=== PATIENT | female | born 1965 | race African-American/Black ===

== ENCOUNTER 2022-01-18 16:15 | Inpatient (IN) | payer MEDICAID ==
[~2022-01-18] VITALS: Ht 162.6 cm; Wt 93.9 kg
--- NOTE | 2022-01-18 16:48 | NUR ---
PT AMBULATED TO ROOM.
--- NOTE | 2022-01-18 17:02 | NUR ---
C/O ABD PAIN, N/V X 3 DAYS. PT STATES THE PAIN IS 10/10 IN THE ABDOMINAL REGION. SHE SAYS SHE HAS HAD DISCOMFORT FOR ABOUT A YEAR NOW BUT A FEW DAYS AGO THE PAIN INCREASED AND SHE DEVELOPED NAUSEA AND VOMITING. PT STATES SHE HAS NOT BEEN ABLE TO KEEP FOOD OR WATER DOWN. NO DYSURIA. BLANKET PROVIDED.PT RESTING IN BED. PMH: DENIES NKA
[2022-01-18] MEDS ORDERED: NACL 0.9% 1,000 ML IV ONE ×2 (17:20→18:45)
[2022-01-18] MEDS ORDERED: ONDANSETRON 4 MG/2 ML VIAL IVP ONE (17:20)
[2022-01-18] MEDS ORDERED: KETOROLAC 15 MG/ML VIAL IVP ONE (17:20)
--- NOTE | 2022-01-18 17:36 | NUR ---
PT TAKEN TO CT VIA URI
[2022-01-18 17:41] LABS: BASOPHILS % (AUTO) 0.4 % (0.0-2.0); EOSINOPHILS # (AUTO) 0.1 K/uL (0-0.4); EOSINOPHILS % (AUTO) 1.6 % (0.0-4.0); HEMATOCRIT 36.4 % (36-48); HEMOGLOBIN 12.3 g/dL (12.0-16.0); LYMPHOCYTES # (AUTO) 1.2 K/uL (2.5-16.5); LYMPHOCYTES % (AUTO) 15.8 % (20.5-51.1); MEAN CORPUSCULAR HEMOGLOBIN 33 pg (27-31); MEAN CORPUSCULAR HGB CONC 34 g/dL (33-37); MEAN CORPUSCULAR VOLUME 97.6 fL (80-94); MONOCYTES # (AUTO) 0.4 K/uL (0.8-1.0); MONOCYTES % (AUTO) 4.9 % (1.7-9.3); NEUTROPHILS # (AUTO) 5.9 K/uL (1.8-7.7); NEUTROPHILS % (AUTO) 77.3 % (42.2-75.2); PLATELET COUNT (AUTO) 252 K/uL (140-450); RED BLOOD CELL COUNT(AUTO) 3.73 MIL/uL (4.20-5.40); RED CELL DISTRIBUTION WIDTH 12.7 % (11.6-13.7); WHITE BLOOD COUNT (AUTO) 7.6 K/uL (4.8-10.8)
[2022-01-18 18:06] LABS: ALBUMIN 3.2 g/dL (3.4-5.0); ANION GAP 10.6 (8-16); CARBON DIOXIDE 29.4 mmol/L (21-32); CREATININE 0.9 mg/dL (0.6-1.3); TOTAL BILIRUBIN 0.4 mg/dL (0.0-1.0)
--- NOTE | 2022-01-18 18:14 | NUR ---
PT PROVIDED WITH PILLOW AND BLANKET BEDSIDE
--- NOTE | 2022-01-18 18:34 | NUR ---
Patient appears to be resting comfortably in bed. Vital Signs within normal limits. Respirations even and unlabored.
--- NOTE | 2022-01-18 18:51 | NUR ---
ALBINO COLLECTED AND HANDED TO EXPLOSIVE ORDNANCE TECHNICIAN BEDSIDE
[2022-01-18] MEDS ORDERED: diphenhydrAMINE 50 MG/ML VIAL IVP ONE (19:00)
--- NOTE | 2022-01-18 19:19 | NUR ---
REPOST GIVEN TO LOGAN
--- NOTE | 2022-01-18 19:24 | NUR ---
ULTRASOUND AT BEDSIDE
--- NOTE | 2022-01-18 20:20 | NUR ---
Admitted from ER TO [facility] , with chief complaint of ABDOMINAL PAIN SINCE 01/16/22, DESCRIBED 10/10 BUT COMES AND GOES, NON-RADIATING. ALSO ONE DAY VOMITING. 56 y/o ,Female, Cooperative, A/A/OX4. RESPIRATION EVEN AND [id number]. IV SALINE LOCK AT THE LEFT AG G18, PATENT AND INTACT. HEAD TO TOE ASSESSMENT WITH CHARGE NURSE PATRICK, SKIN IS INTACT. WAS MEDICATED IN ER WITH MORPHINE FOR PAIN. DENIES PAIN, 0/10 AT THIS TIME. [id number] AT THE BEDSIDE. NPO EXCEPT MEDICATIONS. oriented to call light, bed, phone,television, bathroom, smoking policy, visiting hours, procedures, ID bracelet on. Belongings list checked.
[2022-01-18] MEDS ORDERED: DEXT 5% / NACL 0.9% 500 ML IV SCH (20:55)
[2022-01-18] MEDS: DEXT 5% /NACL 0.9% 1,000 ML IV SCH ×2 (21:10→23:13)
[2022-01-18] MEDS: MORPHINE SULFATE 4 MG/ML SYR IVP PRN (21:24)
--- NOTE | 2022-01-18 21:59 | NUR ---
Patient will be admitted to care of DR. HODGES. Admited to MED SURG. Will go to room 119A. Belongings list completed. Report to CARMELO.
--- NOTE | 2022-01-18 22:10 | NUR ---
PATIENT PLAN OF CARE DISCUSSED AND REVIEWED WITH CINTIA RILEY.
[2022-01-18 22:20] VITALS: BP 148/84
[2022-01-18] MEDS ORDERED: POTASSIUM CHLORIDE 40 MEQ, LIDOCAINE MPF 1% 25 MG in NACL 0.9% 250 ML IV SCH (23:00)
[2022-01-18] MEDS ORDERED: DOCUSATE SODIUM 100 MG GELCAP PO PRN (23:00)
[2022-01-18] MEDS ORDERED: ACETAMINOPHEN 325 MG TAB PO PRN (23:00)
[2022-01-18] MEDS ORDERED: ZOLPIDEM 5 MG TAB PO PRN (23:00)
[2022-01-18] MEDS ORDERED: guaiFENesin DM 200/20 MG-10 ML 10 ML UDC PO PRN (23:00)
[2022-01-18] MEDS ORDERED: HYDROcodone/APAP 7.5/325 MG 1 TAB PO PRN (23:00)
[2022-01-18 23:31] LABS: PROTHROMBIN TIME 10.6 secs (10.8-13.4)
[2022-01-18 23:42] LABS: AMYLASE 183 U/L (25-115); CHOL/HDL RATIO 6.5 (1-4.5); FREE T4 (FREE THYROXINE) 1.01 ng/dL (0.76-1.46); HDL CHOLESTEROL 39 mg/dL (40-60); LDL (CALC) 177 mg/dL (60-100); MAGNESIUM 2.4 mg/dL (1.8-2.4); PHOSPHORUS 3.8 mg/dL (2.5-4.9); TRIGLYCERIDES 181 mg/dL (30-150)
--- NOTE | 2022-01-19 | NUR ---
SLEEPING COMFORTABLY IN BED, RESPIRATION EVEN AND UNLABORED. CALL LIGHT IN REACH.
--- NOTE | 2022-01-19 00:30 | NUR ---
PATIENT IS LYING OB BED, PATIENT VITAL SIGN IS WITHIN THE NORMAL RANGE, ALL SCHEDULE MEDS ARE GIVEN PER DOCTOR ORDER,CALL LIGHT IS WITHIN THE REACH ,WILL CONTINUE TO MONITOR PATIENT. Addendum: 01/19/22 at 2203 by Deann Corona RN ACCIDENTLY PUT WRONG TIME.
--- NOTE | 2022-01-19 00:30 | NUR ---
PATIENT IS LYING OB BED, PATIENT VITAL SIGN IS WITHIN THE NORMAL RANGE, ALL SCHEDULE MEDS ARE GIVEN PER DOCTOR ORDER,CALL LIGHT IS WITHIN THE REACH ,WILL CONTINUE TO MONITOR PATIENT. Addendum: 01/19/22 at 2202 by Deann Corona RN ACCIDENTLY PUT WRONG TIME.
--- NOTE | 2022-01-19 02:00 | NUR ---
ASSISTED OUT OF BED TO GO TO THE BR. BACK TO BED AFTER VOIDING. UA SPECIMEN SENT OT LAB FOR UA AND UDS.
[2022-01-19 02:45] LABS: APPEARANCE,URINE CLEAR (CLEAR); BILIRUBIN,URINE 1+ (NEGATIVE); BLOOD, URINE NEGATIVE (NEGATIVE); COLOR,URINE YELLOW (YELLOW); LEUKOCYTE ESTERASE ,URINE 1+ (NEGATIVE); NITRITE, URINE NEGATIVE (NEGATIVE); UGLUCOSE NEGATIVE (NEGATIVE)
[2022-01-19 02:56] LABS: RBC,URINE 0-5 /HPF (0-5)
[2022-01-19 02:58] LABS: BARBITURATE, URINE NEGATIVE ng/ml (NEG <=200); BENZODIAZEPINE, URINE NEGATIVE ng/mL (NEG <=200); CANNABINOID, URINE POSITIVE ng/mL (NEG <=50); COCAINE, URINE NEGATIVE ng/mL (NEG <=300); OPIATE, URINE POSITIVE ng/mL (NEG <=2000); PHENCYCLIDINE SCREEN,URINE NEGATIVE ng/mL (NEG <=25)
[2022-01-19] MEDS: DEXT 5% /NACL 0.9% 1,000 ML IV SCH (03:40)
[2022-01-19 04:40] VITALS: BP 132/76
[2022-01-19] MEDS: ONDANSETRON 4 MG/2 ML VIAL IM/IVP PRN ×2 (04:41→20:05)
[2022-01-19] MEDS: MORPHINE SULFATE 4 MG/ML SYR IVP PRN (04:41)
[2022-01-19] MEDS: KETOROLAC 15 MG/ML VIAL IM SCH ×3 (05:00→20:06)
--- NOTE | 2022-01-19 05:00 | NUR ---
TORADOL NO ADMINISTERED, PATIENT HAD MORPHINE 2 MG AT 0441.
[2022-01-19 05:13] LABS: BASOPHILS % (AUTO) 0.6 % (0.0-2.0); EOSINOPHILS # (AUTO) 0.3 K/uL (0-0.4); EOSINOPHILS % (AUTO) 4.6 % (0.0-4.0); HEMATOCRIT 32.8 % (36-48); HEMOGLOBIN 11.2 g/dL (12.0-16.0); LYMPHOCYTES # (AUTO) 1.3 K/uL (2.5-16.5); LYMPHOCYTES % (AUTO) 19.9 % (20.5-51.1); MEAN CORPUSCULAR HEMOGLOBIN 33 pg (27-31); MEAN CORPUSCULAR HGB CONC 34 g/dL (33-37); MEAN CORPUSCULAR VOLUME 97.3 fL (80-94); MONOCYTES # (AUTO) 0.5 K/uL (0.8-1.0); MONOCYTES % (AUTO) 6.9 % (1.7-9.3); NEUTROPHILS # (AUTO) 4.5 K/uL (1.8-7.7); PLATELET COUNT (AUTO) 232 K/uL (140-450); RED BLOOD CELL COUNT(AUTO) 3.37 MIL/uL (4.20-5.40); RED CELL DISTRIBUTION WIDTH 12.9 % (11.6-13.7); WHITE BLOOD COUNT (AUTO) 6.6 K/uL (4.8-10.8)
[2022-01-19 05:36] LABS: ANION GAP 11.3 (8-16); CARBON DIOXIDE 27.7 mmol/L (21-32); CREATININE 0.7 mg/dL (0.6-1.3)
--- NOTE | 2022-01-19 07:00 | NUR ---
CONDITION REMAIN STABLE. WILL ENDORSE TO AM SHIFT NURSE FOR CONTINUITY OF CARE.
[2022-01-19 08:00] VITALS: BP 136/83
[2022-01-19] MEDS: PANTOPRAZOLE 40 MG TABEC PO SCH (08:56)
[2022-01-19] MEDS ORDERED: MAG SULF 2000 MG/WATER PREMIX 50 ML IV PRN (09:15)
[2022-01-19] MEDS ORDERED: POTASSIUM CHLORIDE 10 MEQ TABER PO PRN (09:15)
[2022-01-19] MEDS: POTASSIUM CHLORIDE 10 MEQ TABER PO PRN (10:24)
[2022-01-19] MEDS: NACL 0.9% 1,000 ML IV SCH ×2 (10:28→22:40)
--- NOTE | 2022-01-19 11:40 | NUR ---
PATIENT HAS BEEN SCREENED AND CATEGORIZED MODERATE NUTRITION RISK. PATIENT WILL BE SEEN WITHIN 3-5 DA[address] OF [address]MISSION. [address]
--- NOTE | 2022-01-19 12:15 | NUR ---
DC PLANNING PATIENT IS A 56 YR OLD FEMALE WHO PRESENTED TO [facility] ON 01/18/22 FOR AN EVALUATION OF DIFFUSE ABDOMINAL PAIN FOR ONE YEAR. SW MET WITH PATIENT AT BEDSIDE FOR THE PURPOSE OF DISCUSSING GATHERING COLLATERAL INFORMATION. PATIENT REPORTED LIVING AT [address] [place] [address] ALONE. PATIENT REPORTS EMERGENCY CONTACT AND MEDICAL DECISION MAKER ERWIN RUST (MOTHER) [phone]. PATIENT DENIED A.D IN PLACE. SW PROVIDED PATIENT WITH INFORMATION ON A.D. PATIENT WAS RECEPTIVE AND ACCEPTED AD PACKET PROVIDED BY [employer]ATHER REPAIRER. PATIENT REPORTS HAVING NEW MEDICAL PLAN AND NOT HAVING MET PCP. SW SPOKE TO PATIENT ABOUT THE IMPORTANCE OF FOLLOW UP CARE ONCE CLEARED FOR DC. PATIENT WAS IN UNDERSTANDING AND REPORTED THAT SHE WOULD FOLLOW UP WITH PCP. PATIENT DENIES BARRIERS IN ACCESSING MEDICATIONS AND RECEIVES MEDICATION FROM [facility] IN [place]. PATIENT REPORTS BEING INDEPENDENT AND DENIES DME. PATIENT REPORTS ADEQUATE FRIEND AND FAMILY SUPPORT AND REPORTS THAT FAMILY MEMBERS WILL BE PICKING HER UP FROM HOSPITAL ONCE CLEARED FOR DC AND WILL AID IN HER CARE, IF NEEDED. PATIENT REPORTS BEING UNEMPLOYED AND IS REQUESTING SSDI RESOURCES. PATIENT REPORTS RECEIVES [email or web address] RENT RELIEF AT THIS TIME TO ASSIST IN HER PAYING RENT. SW INQUIRED ON ADDITIONAL RESOURCES NEEDED, PATIENT DECLINED AT THIS TIME. SW WILL FOLLOW UP WITH PROVIDING SSDI AND EMERGENCY ASSISTANCE RESOURCES FOR PATIENT. Addendum: 01/19/22 at 1412 by Khang Loyola SW ATTEMPTED TO FOLLOW UP WITH PATIENT TO PROVIDE PATIENT WITH REQUESTED RESOURCES. PATIENT WAS SLEEPING HOWEVER, PATIENTS [id number] FRANCES WAS AT BEDSIDE. PATIENTS DAUGHTER IN LAW ACCEPTED SSDI INFORMATION AND EMERGENCY ASSISTANCE RESOURCES. BRENNEN MORALES, REPORTED THAT SHE WOULD PROVIDE PATIENT WITH RESOURCES ONCE SHE AWOKE.
--- NOTE | 2022-01-19 15:18 | NUR ---
DC PLANNING: THE PATIENT ADMITTED FROM HOME WITH C/O ABDOMINAL PAIN WITH VOMITING X 3 DAYS. LIPASE ELEVATED AT 735, K+ 3.0, CT ABDOMEN SHOWS ACUTE PANCREATITIS. GB US SHOWS HEPTAOMEGALY WITH FATTY INFILTRATION OF LIVER. PATIENT MADE NPO AND STARTED ON IVF'S AND PAIN MANAGEMENT. CM SPOKE WITH THE PATIENT AT BEDSIDE, HER CORRECT ADDRESS IS [address] [place] [address] IN [place]. SHE LIVES ALONE AND HAS NO H/O HOME HEALTH OR DME. SHE IS INDEPENDENT IN ALL ACTIVITIES AND IS UNEMPLOYED. SHE RECEIVES FOOD STAMPS AND HAS RENT RELIEF THROUGH A [employer]. 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 SHE HAS BEEN DENIED BY UNEMPLOYMENT, CM ENDORSED THAT THE WILL GIVE HER RESOURCES AND INFORMATION ON APPLYING FOR SSDI. 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 THE PATIENTS DAUGHTER ASSISTS HER NEEDED AND OFTEN DRIVES HER TO APPOINTMENTS AND TO RUN ERRANDS. THE PATIENT HAS A NEW PCP BECAUSE SHE JUST BECAME INSURED AND HAS NOT SEEN THEM YET. THE PATIENT WILL DC HOME WHEN CLINICALLY STABLE, CM WILL FOLLOW.
[2022-01-19 16:00] VITALS: BP 143/90
--- NOTE | 2022-01-19 19:44 | NUR ---
GET THE REPORT FROM MORNING NURSE, PATIENT IS LYING ON BED,PATIENT IS ALERT AND ORIENTEDX4 ,NO ANY COMPLAIN OF SHORTNESS OF BREATH, CALL LIGHT IS WITHIN THE REACH,WILL CONTINUE TO MONITOR PATIENT
[2022-01-19 20:00] VITALS: BP 129/73
--- NOTE | 2022-01-19 20:30 | NUR ---
PATIENT IS LYING OB BED, PATIENT VITAL SIGN IS WITHIN THE NORMAL RANGE, ALL SCHEDULE MEDS ARE GIVEN PER DOCTOR ORDER,CALL LIGHT IS WITHIN THE REACH ,WILL CONTINUE TO MONITOR PATIENT.
--- NOTE | 2022-01-20 00:30 | NUR ---
PATIENT IS LYING ON BED, NO ANY COMPLAIN OF PAIN OR SHORTNESS OF BREATH AT THIS TIME, ALL SCHEDULE MEDS ARE GIVEN PER DOCTOR ORDER,CALL LIGHT IS WITHIN THE REACH,WILL CONTINUE TO MONITOR.
[2022-01-20] MEDS: NACL 0.9% 1,000 ML IV SCH ×4 (00:47→16:03)
[2022-01-20] MEDS: ONDANSETRON 4 MG/2 ML VIAL IM/IVP PRN ×3 (02:48→16:03)
[2022-01-20] MEDS: MORPHINE SULFATE 2 MG/ML SYR IVP PRN ×4 (02:49→23:28)
--- NOTE | 2022-01-20 02:55 | NUR ---
PATIENT IS COMPLAINING OF PAIN AND VOMITING, MEDICATED WITH ZOFRAN AND MORPHINE IV PRN AD PER DOCTOR ORDER, WILL REASSESS PAIN LAVAL,CALL LIGHT IS WITHIN THE REACH,WILL CONTINUE TO MONITOR PATIENT.
[2022-01-20 04:00] VITALS: BP 123/75
--- NOTE | 2022-01-20 04:35 | NUR ---
PATIENT IS LYING ON BED, NO ANY COMPLAIN OF PAIN OR SHORTNESS OF BREATH AT THIS TIME, VITAL SIGN IS WITHIN THE NORMAL RANGE, CALL LIGHT IS WITHIN THE REACH WILL CONTINUE TO MONITOR PATIENT.
[2022-01-20 06:49] LABS: ANION GAP 9.9 (8-16); CARBON DIOXIDE 27.5 mmol/L (21-32); CREATININE 0.7 mg/dL (0.6-1.3); POTASSIUM 3.4 mmol/L (3.5-5.1)
[2022-01-20 06:50] LABS: BASOPHILS % (AUTO) 0.4 % (0.0-2.0); EOSINOPHILS # (AUTO) 0.3 K/uL (0-0.4); EOSINOPHILS % (AUTO) 5.4 % (0.0-4.0); HEMATOCRIT 32.6 % (36-48); HEMOGLOBIN 11.2 g/dL (12.0-16.0); LYMPHOCYTES # (AUTO) 1.6 K/uL (2.5-16.5); LYMPHOCYTES % (AUTO) 26.6 % (20.5-51.1); MEAN CORPUSCULAR HEMOGLOBIN 34 pg (27-31); MEAN CORPUSCULAR HGB CONC 34 g/dL (33-37); MEAN CORPUSCULAR VOLUME 97.4 fL (80-94); MONOCYTES # (AUTO) 0.5 K/uL (0.8-1.0); MONOCYTES % (AUTO) 8.2 % (1.7-9.3); NEUTROPHILS # (AUTO) 3.5 K/uL (1.8-7.7); NEUTROPHILS % (AUTO) 59.4 % (42.2-75.2); PLATELET COUNT (AUTO) 239 K/uL (140-450); RED BLOOD CELL COUNT(AUTO) 3.35 MIL/uL (4.20-5.40); RED CELL DISTRIBUTION WIDTH 12.9 % (11.6-13.7); WHITE BLOOD COUNT (AUTO) 5.9 K/uL (4.8-10.8)
[2022-01-20 06:55] LABS: MAGNESIUM 2.2 mg/dL (1.8-2.4); PHOSPHORUS 3.1 mg/dL (2.5-4.9)
--- NOTE | 2022-01-20 07:28 | NUR ---
GAVE THE REPORT TO MORNING NURSE, PATIENT IS STABLE.
[2022-01-20 08:00] VITALS: BP 129/68
[2022-01-20 08:08] LABS: T4 (THYROXINE) 7.4 ug/dL (4.5-12.0)
[2022-01-20] MEDS: PANTOPRAZOLE 40 MG TABEC PO SCH (08:26)
--- NOTE | 2022-01-20 10:56 | NUR ---
COPLAINED OF NAUSED AND PAIN IN THE ABDOMEN. MEDS GIVEN.
[2022-01-20] MEDS: POTASSIUM CHLORIDE 10 MEQ TABER PO PRN (11:42)
[2022-01-20 16:00] VITALS: BP 151/81
[2022-01-20] MEDS: DOCUSATE SODIUM 100 MG GELCAP PO SCH ×2 (16:08→20:27)
--- NOTE | 2022-01-20 18:28 | NUR ---
PATIENT HAD BEEN COMPLAINING RE MD THAT CAME THAT NEVER ISI BACK PROMISED AND WOULD LIKE TO TALK TO NURSE HYDRAULIC OIL TOOL OPERATOR. MARILYN NURSE SUPRVISOR IS AWARE THAT PATIENT WOULD LIKE TO TALK TO HIM AND MARILYN STATED 2X THAT HELL COME AND WILL SE PATIENT.PATIENT S JIGAR IN LAW CALLED TOO AND IS AWARE.
--- NOTE | 2022-01-20 18:32 | NUR ---
PATIENT CAME TO NURSE STATION UPSET AND TROW A DIRTY TEASESPOON IN THE STATIN. ZARA OLMEDO NURSE INSTRUCTIONAL INTERVENTIONIST RE REQUEST TO TALK TO HIM. PATIENTS BED CHANGED LINEN AN KEPT CLEAN AND DRY.
--- NOTE | 2022-01-20 19:33 | NUR ---
RECEIVED BEDSIDE REPORT FROM AM NURSE. PATIENT IN BED AAOX4 RESTING COMFORTABLY ON ROOM AIR. NO S/S OF RESPIRATORY DISTRESS. BREATHING REGULAR NON LABORED. IVF NS INFUSING WELL ON THE LAC. SAFETY MEASURES IN PLACE. ON CLEAR LIQUID DIET. NO COMPLAINTS OF PAIN AT THIS TIME. CALL LIGHT WITHIN REACH. WILL CONTINUE TO MONITOR PT.
--- NOTE | 2022-01-20 20:33 | NUR ---
ALL 2100 SCHEDULED MEDICATIONS ADMINISTERED ORDERED BY .
[2022-01-20] MEDS ORDERED: ATORVASTATIN 20 MG TAB PO SCH (21:00)
--- NOTE | 2022-01-20 23:28 | NUR ---
COMPLAINED OF SEVERE ABDOMINAL PAIN, MEDICATED ORDERED.
[2022-01-21] VITALS: BP 135/75
[2022-01-21] MEDS: NACL 0.9% 1,000 ML IV SCH ×2 (01:27→08:30)
[2022-01-21 05:43] LABS: BASOPHILS % (AUTO) 0.6 % (0.0-2.0); EOSINOPHILS # (AUTO) 0.3 K/uL (0-0.4); EOSINOPHILS % (AUTO) 6.2 % (0.0-4.0); HEMATOCRIT 31.1 % (36-48); HEMOGLOBIN 10.6 g/dL (12.0-16.0); LYMPHOCYTES # (AUTO) 1.4 K/uL (2.5-16.5); LYMPHOCYTES % (AUTO) 27.1 % (20.5-51.1); MEAN CORPUSCULAR HEMOGLOBIN 33 pg (27-31); MEAN CORPUSCULAR HGB CONC 34 g/dL (33-37); MEAN CORPUSCULAR VOLUME 97.1 fL (80-94); MONOCYTES # (AUTO) 0.4 K/uL (0.8-1.0); NEUTROPHILS # (AUTO) 3.1 K/uL (1.8-7.7); NEUTROPHILS % (AUTO) 58.1 % (42.2-75.2); PLATELET COUNT (AUTO) 252 K/uL (140-450); RED CELL DISTRIBUTION WIDTH 13.1 % (11.6-13.7); WHITE BLOOD COUNT (AUTO) 5.3 K/uL (4.8-10.8)
[2022-01-21 05:53] LABS: ANION GAP 10.3 (8-16); CARBON DIOXIDE 26.1 mmol/L (21-32); CREATININE 0.7 mg/dL (0.6-1.3); POTASSIUM 3.4 mmol/L (3.5-5.1)
[2022-01-21 05:54] LABS: MAGNESIUM 2.1 mg/dL (1.8-2.4)
--- NOTE | 2022-01-21 07:16 | NUR ---
BEDSIDE ENDORSEMENT GIVEN TO AM NURSE FOR CONTINUITY OF CARE. PT IN STABLE CONDITION.
[2022-01-21 08:00] VITALS: BP 146/80
--- NOTE | 2022-01-21 08:00 | NUR ---
RECEIVED PATIENT LAYING IN BED ALERT AND ORIENTED X4, PATIENT LUNGS CLEAR ON ROOM AIR, BOWEL SOUNDS NORMAL ACTIVE, ABD TINDER BELOW DIAPHRAGM, PATIENT IS ON A CLEAR LIQUID DIET, SKIN IS WARM DRY AND INTACT. PATIENT IS AMBULATORY AND DOES NOT NEED ASSISTANCE. COMPLAINS OF PAIN 6/10 WILL TREAT FOR PAIN. PATIENT BED AT LOWEST POSITION AND LOCKED. CALL LIGHT WITHIN REACH, PERSONAL BELONGINGS WITHIN REACH. WILL CONTINUE TO MONITOR.
[2022-01-21] MEDS: PANTOPRAZOLE 40 MG TABEC PO SCH (08:26)
[2022-01-21] MEDS: DOCUSATE SODIUM 100 MG GELCAP PO SCH (08:26)
[2022-01-21] MEDS ORDERED: CEPH-588 PO (13:48)
[2022-01-21] MEDS ORDERED: PANT40EC56 PO (13:48)
[2022-01-21] MEDS ORDERED: ATOR20TA40 PO (13:48)
[2022-01-21 15:25] VITALS: BP 146/80
== END 2022-01-21 15:45 | disposition home or self-care (01) | DRG 282 ==
LOC: MED 16:15 → MTU 20:59
PROVIDERS: ADMIT Family Medicine; ATTEND Family Medicine
DX: K85.90 Acute pancreatitis without necrosis or infection, unspecified (principal); E44.1 Mild protein-calorie malnutrition; K76.0 Fatty (change of) liver, not elsewhere classified; R16.0 Hepatomegaly, not elsewhere classified; E83.51 Hypocalcemia; K57.90 Diverticulosis of intestine, part unspecified, without perforation or abscess without bleeding; E66.9 Obesity, unspecified; E86.0 Dehydration; Z20.822 Contact with and (suspected) exposure to COVID-19; Z68.35 Body mass index [BMI] 35.0-35.9, adult
CPT/HCPCS: 36415; 76705; 80048; 80053; 80305; 81001; 82150; 83036; 83690; 83735; 83880; 84100; 84436; 84439; 84443; 84479; 84484; 85025; 85610; 85730; 87081; 87086; 96361; 96374; 96375; 99285; J0696; J1200; J1644; J1885; J2270; J2405; J7060; Q0092

== ENCOUNTER 2023-07-13 15:29 | Emergency (ER) | payer MEDICAID ==
[~2023-07-13] VITALS: Ht 162.6 cm; Wt 84.8 kg
[~2023-07-13 15:29] MED LIST: ATOR20TA40 PO; CEPH-588 PO; PANT40EC56 PO
[2023-07-13 15:45] VITALS: BP 141/78; PULSE 68; RESP 15; TEMP 97.7; O2SAT 100
[2023-07-13] MEDS ORDERED: MECLIZINE 25 MG TAB PO ONE (16:10)
[2023-07-13 16:14] LABS: BASOPHILS % (AUTO) 0.5 % (0.0-2.0); EOSINOPHILS # (AUTO) 0.2 K/uL (0-0.4); HEMATOCRIT 38.5 % (36-48); HEMOGLOBIN 13.2 g/dL (12.0-16.0); LYMPHOCYTES % (AUTO) 31.1 % (20.5-51.1); MEAN CORPUSCULAR HEMOGLOBIN 33 pg (27-31); MEAN CORPUSCULAR HGB CONC 34 g/dL (33-37); MEAN CORPUSCULAR VOLUME 95.4 fL (80-94); MONOCYTES # (AUTO) 0.4 K/uL (0.8-1.0); MONOCYTES % (AUTO) 6.5 % (1.7-9.3); NEUTROPHILS # (AUTO) 3.8 K/uL (1.8-7.7); NEUTROPHILS % (AUTO) 58.9 % (42.2-75.2); PLATELET COUNT (AUTO) 346 K/uL (140-450); RED BLOOD CELL COUNT(AUTO) 4.04 MIL/uL (4.20-5.40); RED CELL DISTRIBUTION WIDTH 12.9 % (11.6-13.7); WHITE BLOOD COUNT (AUTO) 6.5 K/uL (4.8-10.8)
[2023-07-13 16:27] LABS: APPEARANCE,URINE CLEAR (CLEAR); BILIRUBIN,URINE NEGATIVE (NEGATIVE); BLOOD, URINE NEGATIVE (NEGATIVE); COLOR,URINE YELLOW (YELLOW); LEUKOCYTE ESTERASE ,URINE 2+ (NEGATIVE); NITRITE, URINE NEGATIVE (NEGATIVE); PH,URINE 5.5 (5.0-9.0); PROTEIN,URINE NEGATIVE (NEGATIVE); UGLUCOSE NEGATIVE (NEGATIVE); UROBILINOGEN,URINE 0.2 EU/dL (0.2 - 1)
[2023-07-13 16:38] LABS: ANION GAP 10.9 (8-16); CARBON DIOXIDE 29.6 mmol/L (21-32); POTASSIUM 3.5 mmol/L (3.5-5.1)
[2023-07-13 16:46] LABS: BACTERIA,URINE 2+ /HPF (None Seen); MUCUS,URINE 1+ /LPF (None Seen); RBC,URINE 0-5 /HPF (0-5); SQUAMOUS EPITHELIAL CELL,UR 4-10 (MOD) /LPF (0-3 (FEW)); TRICHOMONAS,URINE None Seen /HPF (None Seen); YEAST,URINE None Seen /HPF (None Seen)
[2023-07-13] MEDS ORDERED: KETOROLAC 60 MG/2 ML VIAL IM ONE (16:55)
[2023-07-13] MEDS ORDERED: MECL-303 PO (17:09)
[2023-07-13] MEDS ORDERED: CIPR500T4 PO (17:09)
[2023-07-13] MEDS ORDERED: IBUP-2213 PO (17:09)
[2023-07-13] MEDS ORDERED: ONDA8TAB87 PO (17:09)
[2023-07-13 17:18] VITALS: BP 141/78; PULSE 68; RESP 15; TEMP 97.7; O2SAT 100
== END 2023-07-13 17:18 | disposition home or self-care (01) ==
LOC: MED 15:29
DX: R55 Syncope and collapse (principal); N39.0 Urinary tract infection, site not specified; Z79.899 Other long term (current) drug therapy
CPT/HCPCS: 36415; 70450; 80048; 81001; 85025; 87086; 93005; 96372; 99285; J1885; J8597